=== PATIENT | male | born 1980 | race Caucasian/White ===

== ENCOUNTER 2017-11-21 13:00 | Emergency (ER) | payer OTHER ==
[~2017-11-21] VITALS: Ht 193 cm; Wt 167.8 kg
[~2017-11-21 13:00] MED LIST: ALBU90OI INH; ALBUIS INH; Bactrim 400-801 EACH PO; CEPH500 PO; CETI5; CHLO25 PO; CITA20 PO; CYCL10 PO; DIVA250EC; DIVA500ER PO; FURO20 PO; Flagyl500 MG PO; IBUP800 PO; LEVO750 PO; LORA1 PO; Lasix20 MG PO; MIRT30 PO; Naprosyn500 MG PO; Norco 5-325 Ta1 EACH PO; OLAN5 PO; POTCHL10ER PO; POTCHL20ER PO; Pepcid20 MG PO; Pepcid40 MG PO; Percocet 5-3251 EACH PO; SUCR1 PO; Ventolin/Prove6.7 GM; Zofran Odt8 MG SL
[2017-11-21] MEDS ORDERED: CLON1 PO (13:09)
[2017-11-21 13:43] LABS: BASOPHILS ABSOLUTE AUTO 0.07 K/mm3 (0.00-0.23); BASOPHILS PERCENT AUTO 1 % (0-2); EOSINOPHILS PERCENT AUTO 2 % (0-6); Hematocrit 51.7 % (37.0-53.0); Hemoglobin 17.6 g/dL (13.5-17.5); IMMATURE GRAN ABSOLUTE AUTO 0.02 K/mm3 (0.00-0.10); IMMATURE GRAN PERCENT AUTO 0 % (0-1); LYMPHOCYTES ABSOLUTE AUTO 1.76 K/mm3 (0.84-5.20); LYMPHOCYTES PERCENT AUTO 26 % (21-46); MONOCYTES ABSOLUTE AUTO 0.65 K/mm3 (0.16-1.47); MONOCYTES PERCENT AUTO 10 % (4-13); Mean Corpuscular HGB 30.8 pg (26.0-34.0); Mean Corpuscular Volume 91 fL (80-100); NEUTROPHILS ABSOLUTE AUTO 4.16 K/mm3 (1.96-9.15); NEUTROPHILS PERCENT AUTO 62 % (41-73); RDW Coefficient Variation 15.3 % (11.7-14.2); RDW Standard Deviation 50.5 fL (35.1-46.3); Red Blood Cell Count 5.71 M/mm3 (4.30-5.90); White Blood Cell Count 6.76 K/mm3 (4.00-11.30)
[2017-11-21 13:52] LABS: Alanine Aminotransfer (ALT/SGP 116 U/L (12-78); Albumin, Blood 3.5 g/dL (3.4-5.0); Alk Phos 98 U/L (50-136); Anion Gap 10 mmol/L (6-16); Aspartate Aminotrans (AST/SGOT 84 U/L (12-37); Bilirubin, Total 0.8 mg/dL (0.1-1.0); Blood Urea Nitrogen 6 mg/dL (8-24); Bun/Creatinine Ratio 7.8 (12.0-20.0); CO2, Blood 28 mmol/L (21-32); Calcium, Blood 8.5 mg/dL (8.5-10.1); Chloride, Blood 97 mmol/L (98-108); Creatinine, Blood 0.77 mg/dL (0.60-1.20); Globulin, Blood 3.5 g/dL (2.2-4.0); Glomerular Filtration Rate >60 (60-); Glucose, Blood 141 mg/dL (70-99); Potassium, Blood 3.7 mmol/L (3.5-5.5); Sodium, Blood 135 mmol/L (136-145)
[2017-11-21 14:00] LABS: Mean Platelet Volume 10.5 fL (9.1-12.4); Platelet Count 124 K/mm3 (150-400)
[2017-11-21] MEDS ORDERED: Zofran Odt4 MG PO (16:33)
[2017-11-21] MEDS ORDERED: Pepcid40 MG PO (16:33)
[2017-11-21] MEDS ORDERED: CHLO25 PO (16:33)
[2017-11-21] MEDS ORDERED: Percocet 5-3251 EACH PO (16:33)
[2018-09-05] MEDS ORDERED: Acetaminophen-1 EAC1 PO (12:35)
[2018-09-13] MEDS ORDERED: PROM25 PO (13:04)
[2018-09-13] MEDS ORDERED: Esgic Tablet1 EACH PO (13:04)
== END 2017-11-21 16:45 | disposition home or self-care (01) ==
LOC: ER 13:00
PROVIDERS: Emergency Medicine
DX: K85.90 Acute pancreatitis without necrosis or infection, unspecified (principal); F10.239 Alcohol dependence with withdrawal, unspecified; I25.2 Old myocardial infarction; Z79.899 Other long term (current) drug therapy
CPT/HCPCS: 36415; 74177; 80053; 83690; 85025; 93005; 93010; 96361; 96374; 96375; 96376; 99284; J2060; J2270; J3490; J7030; Q9967

== ENCOUNTER 2017-12-05 09:13 | Emergency (ER) | payer OTHER ==
[~2017-12-05] VITALS: Ht 193 cm; Wt 163.3 kg
[~2017-12-05 09:13] MED LIST changes: +CLON1 PO; +Zofran Odt4 MG PO
[2017-12-05 10:29] LABS: BASOPHILS ABSOLUTE AUTO 0.07 K/mm3 (0.00-0.23); BASOPHILS PERCENT AUTO 1 % (0-2); EOSINOPHILS ABSOLUTE AUTO 0.26 K/mm3 (0.00-0.68); EOSINOPHILS PERCENT AUTO 4 % (0-6); Hematocrit 52.8 % (37.0-53.0); Hemoglobin 18.5 g/dL (13.5-17.5); IMMATURE GRAN ABSOLUTE AUTO 0.01 K/mm3 (0.00-0.10); IMMATURE GRAN PERCENT AUTO 0 % (0-1); LYMPHOCYTES ABSOLUTE AUTO 1.64 K/mm3 (0.84-5.20); LYMPHOCYTES PERCENT AUTO 27 % (21-46); MONOCYTES ABSOLUTE AUTO 0.54 K/mm3 (0.16-1.47); MONOCYTES PERCENT AUTO 9 % (4-13); Mean Corpuscular HGB 32.2 pg (26.0-34.0); Mean Corpuscular Volume 92 fL (80-100); Mean Platelet Volume 10.4 fL (9.1-12.4); NEUTROPHILS PERCENT AUTO 59 % (41-73); Platelet Count 94 K/mm3 (150-400); RDW Coefficient Variation 15.8 % (11.7-14.2); RDW Standard Deviation 52.7 fL (35.1-46.3); Red Blood Cell Count 5.75 M/mm3 (4.30-5.90); White Blood Cell Count 6.12 K/mm3 (4.00-11.30)
[2017-12-05 10:46] LABS: Alanine Aminotransfer (ALT/SGP 100 U/L (12-78); Albumin, Blood 3.7 g/dL (3.4-5.0); Albumin/Globulin Ratio 0.9 (0.8-1.8); Alk Phos 107 U/L (50-136); Anion Gap 11 mmol/L (6-16); Aspartate Aminotrans (AST/SGOT 132 U/L (12-37); Bilirubin, Total 0.8 mg/dL (0.1-1.0); Blood Urea Nitrogen 6 mg/dL (8-24); Bun/Creatinine Ratio 6.9 (12.0-20.0); CO2, Blood 30 mmol/L (21-32); Calcium, Blood 9.9 mg/dL (8.5-10.1); Chloride, Blood 94 mmol/L (98-108); Creatinine, Blood 0.87 mg/dL (0.60-1.20); Ethanol (Alcohol), Blood, Med 242 mg/dL; Glomerular Filtration Rate >60 (60-); Glucose, Blood 174 mg/dL (70-99); Potassium, Blood 3.6 mmol/L (3.5-5.5); Sodium, Blood 135 mmol/L (136-145); Total Protein, Blood 7.7 g/dL (6.4-8.2)
[2017-12-05] MEDS ORDERED: CHLO25 PO (13:26)
[2017-12-05] MEDS ORDERED: Protonix40 MG PO (13:26)
[2018-09-05] MEDS ORDERED: Acetaminophen-1 EAC1 PO (12:35)
[2018-09-13] MEDS ORDERED: PROM25 PO (13:04)
[2018-09-13] MEDS ORDERED: Esgic Tablet1 EACH PO (13:04)
== END 2017-12-05 14:00 | disposition home or self-care (01) ==
LOC: ER 09:13
PROVIDERS: Emergency Medicine
DX: K29.20 Alcoholic gastritis without bleeding (principal); F10.229 Alcohol dependence with intoxication, unspecified; Y90.8 Blood alcohol level of 240 mg/100 ml or more
CPT/HCPCS: 36415; 80053; 83690; 85025; 86850; 86900; 86901; 96361; 96374; 96375; 96376; 99284; G0480; J2405; J3010; J7030

== ENCOUNTER → 2017-12-06 | Outpatient (CLI) | payer OTHER ==
[~2017-12-06] MED LIST changes: +Acetaminophen-1 EAC1 PO; +CIME400 PO; +Esgic Tablet1 EACH PO; +Hydroxyzine HCl50 MG; +LIDO700A20 TOP; +Loxapine5 MG PO; +MELATONIN10 M2 PO; +METF500C PO; +Naltrexone HCl50 MG PO; +Ondansetron Odt8 MG PO; +PROM25 PO; +Pantoprazole So40 MG PO; +Prednisone20 MG PO; +Prinivil10 MG PO; +Protonix40 MG PO; +RANI150 PO; +SERT100 PO; +TRAZ100 PO; +TRAZ50 PO; +Ventolin/Prove6.7 GM INH; +Zofran Odt4 MG SL
[2017-12-06 15:06] LABS: Bilirubin, Urine Neg (Neg); Blood, Urine 1+ (Neg); Glucose Qualitative, Urine Neg (Neg); Ketones, Urine Neg (Neg); Leukocyte Esterase, Urine 1+ (Neg); Nitrite, Urine Neg (Neg); Protein, Urine 2+ (Neg); Specific Gravity, Urine 1.025 (1.003-1.022); Urobilinogen, Urine 1+ (Normal)
[2017-12-06 15:57] LABS: Appearance, Urine Hazy (Clear); Color, Urine Orange (P-Yellow)
[2017-12-06 15:59] LABS: Calcium Oxalate Crystals Few /hpf; Mucus Mod (0-Heavy)
[2017-12-06 16:00] LABS: Bacteria Few /hpf; Squamous Epithelial Cells Not Seen /hpf (Few)
== END ==
LOC: LAB SHORT 14:40
PROVIDERS: Nurse Practitioner Family
DX: R31.9 Hematuria, unspecified (principal)
CPT/HCPCS: 81001; 87086

== ENCOUNTER → 2017-12-24 | Outpatient (CLI) | payer OTHER | LOC: LAB 14:30 | DX: R10.9 Unspecified abdominal pain (principal); R11.0 Nausea | CPT/HCPCS: 87338 ==

== ENCOUNTER 2018-01-09 11:01 | Emergency (ER) | payer OTHER ==
[~2018-01-09] VITALS: Ht 190.5 cm; Wt 158.8 kg
[~2018-01-09 11:01] MED LIST changes: -Acetaminophen-1 EAC1 PO; -CIME400 PO; -Esgic Tablet1 EACH PO; -Hydroxyzine HCl50 MG; -LIDO700A20 TOP; -Loxapine5 MG PO; -MELATONIN10 M2 PO; -METF500C PO; -Naltrexone HCl50 MG PO; -Ondansetron Odt8 MG PO; -PROM25 PO; -Pantoprazole So40 MG PO; -Prednisone20 MG PO; -Prinivil10 MG PO; -RANI150 PO; -SERT100 PO; -TRAZ100 PO; -TRAZ50 PO; -Ventolin/Prove6.7 GM INH; -Zofran Odt4 MG SL
[2018-01-09] MEDS ORDERED: Ventolin/Prove6.7 GM INH (11:29)
[2018-01-09] MEDS ORDERED: Loxapine5 MG PO (11:31)
[2018-01-09] MEDS ORDERED: TRAZ100 PO ×2 (11:32)
[2018-01-09] MEDS ORDERED: Naltrexone HCl50 MG PO (11:33)
[2018-01-09] MEDS ORDERED: RANI150 PO (11:34)
[2018-01-09] MEDS ORDERED: Pantoprazole So40 MG PO (11:34)
[2018-01-09] MEDS ORDERED: Ondansetron Odt8 MG PO (11:35)
[2018-01-09] MEDS ORDERED: Prinivil10 MG PO (11:36)
[2018-01-09] MEDS ORDERED: MELATONIN10 M2 PO (11:37)
[2018-01-09 12:50] LABS: BASOPHILS ABSOLUTE AUTO 0.05 K/mm3 (0.00-0.23); BASOPHILS PERCENT AUTO 1 % (0-2); EOSINOPHILS ABSOLUTE AUTO 0.24 K/mm3 (0.00-0.68); EOSINOPHILS PERCENT AUTO 5 % (0-6); Hematocrit 51.6 % (37.0-53.0); Hemoglobin 17.7 g/dL (13.5-17.5); IMMATURE GRAN ABSOLUTE AUTO 0.01 K/mm3 (0.00-0.10); IMMATURE GRAN PERCENT AUTO 0 % (0-1); LYMPHOCYTES ABSOLUTE AUTO 1.07 K/mm3 (0.84-5.20); LYMPHOCYTES PERCENT AUTO 22 % (21-46); MONOCYTES PERCENT AUTO 10 % (4-13); Mean Corpuscular HGB 32.8 pg (26.0-34.0); Mean Corpuscular HGB Conc 34.3 g/dL (31.5-36.5); Mean Corpuscular Volume 96 fL (80-100); NEUTROPHILS ABSOLUTE AUTO 3.09 K/mm3 (1.96-9.15); NEUTROPHILS PERCENT AUTO 62 % (41-73); Platelet Count 91 K/mm3 (150-400); RDW Coefficient Variation 14.6 % (11.7-14.2); White Blood Cell Count 4.96 K/mm3 (4.00-11.30)
[2018-01-09] MEDS ORDERED: Prednisone20 MG PO (13:02)
[2018-01-09 13:10] LABS: Troponin I <0.015 ng/mL (0.000-0.040)
[2018-01-09 13:18] LABS: Alanine Aminotransfer (ALT/SGP 344 U/L (12-78); Albumin, Blood 3.7 g/dL (3.4-5.0); Albumin/Globulin Ratio 0.9 (0.8-1.8); Alk Phos 77 U/L (50-136); Anion Gap 6 mmol/L (6-16); Aspartate Aminotrans (AST/SGOT 244 U/L (12-37); Blood Urea Nitrogen 12 mg/dL (8-24); Bun/Creatinine Ratio 15.9 (12.0-20.0); CO2, Blood 25 mmol/L (21-32); Calcium, Blood 8.7 mg/dL (8.5-10.1); Chloride, Blood 104 mmol/L (98-108); Creatinine, Blood 0.76 mg/dL (0.60-1.20); Globulin, Blood 3.9 g/dL (2.2-4.0); Glomerular Filtration Rate >60 (60-); Glucose, Blood 140 mg/dL (70-99); Potassium, Blood 4.2 mmol/L (3.5-5.5); Sodium, Blood 135 mmol/L (136-145); Total Protein, Blood 7.6 g/dL (6.4-8.2)
[2018-09-05] MEDS ORDERED: Acetaminophen-1 EAC1 PO (12:35)
[2018-09-13] MEDS ORDERED: PROM25 PO (13:04)
[2018-09-13] MEDS ORDERED: Esgic Tablet1 EACH PO (13:04)
== END 2018-01-09 13:24 | disposition home or self-care (01) ==
LOC: ER 11:01
PROVIDERS: Internal Medicine
DX: J20.9 Acute bronchitis, unspecified (principal); J45.909 Unspecified asthma, uncomplicated; I25.2 Old myocardial infarction; F17.200 Nicotine dependence, unspecified, uncomplicated
CPT/HCPCS: 71046; 80053; 84484; 85025; 93005; 93010; 94644; 96374; 99283; J2930

== ENCOUNTER 2018-03-16 07:34 | Emergency (ER) | payer OTHER ==
[~2018-03-16] VITALS: Ht 193 cm; Wt 158.8 kg
[~2018-03-16 07:34] MED LIST changes: +Loxapine5 MG PO; +MELATONIN10 M2 PO; +Naltrexone HCl50 MG PO; +Ondansetron Odt8 MG PO; +Pantoprazole So40 MG PO; +Prednisone20 MG PO; +Prinivil10 MG PO; +RANI150 PO; +TRAZ100 PO; +Ventolin/Prove6.7 GM INH
[2018-03-16 08:36] LABS: BASOPHILS ABSOLUTE AUTO 0.06 K/mm3 (0.00-0.23); BASOPHILS PERCENT AUTO 1 % (0-2); EOSINOPHILS ABSOLUTE AUTO 0.17 K/mm3 (0.00-0.68); EOSINOPHILS PERCENT AUTO 3 % (0-6); Hemoglobin 16.9 g/dL (13.5-17.5); IMMATURE GRAN ABSOLUTE AUTO 0.01 K/mm3 (0.00-0.10); IMMATURE GRAN PERCENT AUTO 0 % (0-1); LYMPHOCYTES ABSOLUTE AUTO 1.26 K/mm3 (0.84-5.20); LYMPHOCYTES PERCENT AUTO 25 % (21-46); MONOCYTES ABSOLUTE AUTO 0.45 K/mm3 (0.16-1.47); MONOCYTES PERCENT AUTO 9 % (4-13); Mean Corpuscular HGB 32.2 pg (26.0-34.0); Mean Corpuscular HGB Conc 34.5 g/dL (31.5-36.5); Mean Corpuscular Volume 93 fL (80-100); Mean Platelet Volume 12.1 fL (9.1-12.4); NEUTROPHILS ABSOLUTE AUTO 3.18 K/mm3 (1.96-9.15); NEUTROPHILS PERCENT AUTO 62 % (41-73); Platelet Count 112 K/mm3 (150-400); RDW Coefficient Variation 12.6 % (11.7-14.2); RDW Standard Deviation 43.3 fL (35.1-46.3); Red Blood Cell Count 5.25 M/mm3 (4.30-5.90); White Blood Cell Count 5.13 K/mm3 (4.00-11.30)
[2018-03-16 09:03] LABS: Alanine Aminotransfer (ALT/SGP 51 U/L (12-78); Albumin, Blood 3.4 g/dL (3.4-5.0); Alk Phos 114 U/L (50-136); Anion Gap 6 mmol/L (6-16); Aspartate Aminotrans (AST/SGOT 27 U/L (12-37); Bilirubin, Total 0.4 mg/dL (0.1-1.0); Blood Urea Nitrogen 6 mg/dL (8-24); Bun/Creatinine Ratio 10.1 (12.0-20.0); CO2, Blood 30 mmol/L (21-32); Calcium, Blood 8.4 mg/dL (8.5-10.1); Chloride, Blood 103 mmol/L (98-108); Globulin, Blood 3.5 g/dL (2.2-4.0); Glomerular Filtration Rate >60 (60-); Glucose, Blood 287 mg/dL (70-99); Potassium, Blood 3.7 mmol/L (3.5-5.5); Sodium, Blood 139 mmol/L (136-145); Total Protein, Blood 6.9 g/dL (6.4-8.2)
[2018-03-16] MEDS ORDERED: METF500C PO (09:40)
[2018-03-16] MEDS ORDERED: LIDO700A20 TOP (09:40)
[2018-03-16] MEDS ORDERED: Zofran Odt4 MG SL (09:40)
== END 2018-03-16 09:51 | disposition home or self-care (01) ==
LOC: ER 07:34
PROVIDERS: Physician Assistant
DX: K29.70 Gastritis, unspecified, without bleeding (principal); E11.9 Type 2 diabetes mellitus without complications; M79.81 Nontraumatic hematoma of soft tissue; F17.210 Nicotine dependence, cigarettes, uncomplicated; Z79.899 Other long term (current) drug therapy
CPT/HCPCS: 36415; 80053; 83690; 84484; 85025; 93005; 93010; 96361; 96374; 96375; 99283; C9113; J3010; J7030

== ENCOUNTER 2018-07-23 11:44 | Emergency (ER) | payer OTHER ==
[~2018-07-23] VITALS: Ht 190.5 cm; Wt 153.8 kg
[~2018-07-23 11:44] MED LIST changes: +LIDO700A20 TOP; +METF500C PO; +Zofran Odt4 MG SL
[2018-07-23] MEDS ORDERED: TRAZ50 PO (11:52)
[2018-07-23] MEDS ORDERED: Prinivil10 MG PO (11:52)
[2018-07-23] MEDS ORDERED: SERT100 PO (11:52)
[2018-07-23] MEDS ORDERED: Hydroxyzine HCl50 MG (11:52)
[2018-07-23 12:12] LABS: BASOPHILS ABSOLUTE AUTO 0.09 K/mm3 (0.00-0.23); BASOPHILS PERCENT AUTO 2 % (0-2); EOSINOPHILS ABSOLUTE AUTO 0.19 K/mm3 (0.00-0.68); EOSINOPHILS PERCENT AUTO 3 % (0-6); Hematocrit 48.3 % (37.0-53.0); Hemoglobin 16.4 g/dL (13.5-17.5); IMMATURE GRAN ABSOLUTE AUTO 0.01 K/mm3 (0.00-0.10); IMMATURE GRAN PERCENT AUTO 0 % (0-1); LYMPHOCYTES ABSOLUTE AUTO 2.07 K/mm3 (0.84-5.20); LYMPHOCYTES PERCENT AUTO 34 % (21-46); MONOCYTES ABSOLUTE AUTO 0.51 K/mm3 (0.16-1.47); MONOCYTES PERCENT AUTO 8 % (4-13); Mean Corpuscular HGB 29.8 pg (26.0-34.0); Mean Corpuscular Volume 88 fL (80-100); Mean Platelet Volume 11.7 fL (9.1-12.4); NEUTROPHILS ABSOLUTE AUTO 3.24 K/mm3 (1.96-9.15); NEUTROPHILS PERCENT AUTO 53 % (41-73); Platelet Count 146 K/mm3 (150-400); RDW Coefficient Variation 11.6 % (11.7-14.2); RDW Standard Deviation 37.2 fL (35.1-46.3); White Blood Cell Count 6.11 K/mm3 (4.00-11.30)
[2018-07-23 12:39] LABS: Alanine Aminotransfer (ALT/SGP 55 U/L (12-78); Albumin, Blood 3.7 g/dL (3.4-5.0); Alk Phos 105 U/L (50-136); Anion Gap 7 mmol/L (6-16); Aspartate Aminotrans (AST/SGOT 30 U/L (12-37); Bilirubin, Total 0.7 mg/dL (0.1-1.0); Blood Urea Nitrogen 13 mg/dL (8-24); Bun/Creatinine Ratio 17.5 (12.0-20.0); CO2, Blood 26 mmol/L (21-32); Calcium, Blood 8.8 mg/dL (8.5-10.1); Chloride, Blood 102 mmol/L (98-108); Creatinine, Blood 0.74 mg/dL (0.60-1.20); Globulin, Blood 3.6 g/dL (2.2-4.0); Glomerular Filtration Rate >60 (60-); Glucose, Blood 145 mg/dL (70-99); Potassium, Blood 4.2 mmol/L (3.5-5.5); Sodium, Blood 135 mmol/L (136-145); Total Protein, Blood 7.3 g/dL (6.4-8.2)
[2018-07-23] MEDS ORDERED: CIME400 PO (14:38)
== END 2018-07-23 14:52 | disposition home or self-care (01) ==
LOC: ER 11:44
PROVIDERS: Emergency Medicine
DX: R11.2 Nausea with vomiting, unspecified (principal); R19.7 Diarrhea, unspecified; R10.13 Epigastric pain; I25.2 Old myocardial infarction; F17.200 Nicotine dependence, unspecified, uncomplicated; Z79.899 Other long term (current) drug therapy; Z79.51 Long term (current) use of inhaled steroids; Z79.84 Long term (current) use of oral hypoglycemic drugs
CPT/HCPCS: 36415; 80053; 83690; 85025; 96361; 96374; 96375; 99283-25; C9113; J2405; J7030

== ENCOUNTER 2018-11-07 19:20 | Inpatient (IN) | payer OTHER ==
[~2018-11-07] VITALS: Ht 193 cm; Wt 151.8 kg
[~2018-11-07 19:20] MED LIST changes: +Acetaminophen-1 EAC1 PO; +CIME400 PO; +Esgic Tablet1 EACH PO; +Hydroxyzine HCl50 MG; +PROM25 PO; +SERT100 PO; +TRAZ50 PO
[2018-11-07 20:17] LABS: BASOPHILS ABSOLUTE AUTO 0.04 K/mm3 (0.00-0.23); BASOPHILS PERCENT AUTO 0 % (0-2); EOSINOPHILS PERCENT AUTO 0 % (0-6); Hematocrit 54.6 % (37.0-53.0); IMMATURE GRAN ABSOLUTE AUTO 0.03 K/mm3 (0.00-0.10); IMMATURE GRAN PERCENT AUTO 0 % (0-1); LYMPHOCYTES ABSOLUTE AUTO 1.33 K/mm3 (0.84-5.20); LYMPHOCYTES PERCENT AUTO 12 % (21-46); MONOCYTES PERCENT AUTO 8 % (4-13); Mean Corpuscular HGB 28.3 pg (26.0-34.0); Mean Corpuscular HGB Conc 34.8 g/dL (31.5-36.5); Mean Corpuscular Volume 81 fL (80-100); Mean Platelet Volume 10.9 fL (9.1-12.4); NEUTROPHILS ABSOLUTE AUTO 8.58 K/mm3 (1.96-9.15); NEUTROPHILS PERCENT AUTO 79 % (41-73); Platelet Count 101 K/mm3 (150-400); RDW Coefficient Variation 13.5 % (11.7-14.2); RDW Standard Deviation 38.5 fL (35.1-46.3); Red Blood Cell Count 6.72 M/mm3 (4.30-5.90); White Blood Cell Count 10.88 K/mm3 (4.00-11.30)
[2018-11-07 20:33] LABS: Alanine Aminotransfer (ALT/SGP 41 U/L (12-78); Albumin, Blood 3.6 g/dL (3.4-5.0); Albumin/Globulin Ratio 0.9 (0.8-1.8); Alk Phos 102 U/L (50-136); Anion Gap 19 mmol/L (6-16); Aspartate Aminotrans (AST/SGOT 47 U/L (12-37); Bilirubin, Total 2.2 mg/dL (0.1-1.0); Blood Urea Nitrogen 13 mg/dL (8-24); Bun/Creatinine Ratio 15.7 (12.0-20.0); CO2, Blood 22 mmol/L (21-32); Calcium, Blood 8.2 mg/dL (8.5-10.1); Chloride, Blood 86 mmol/L (98-108); Creatinine, Blood 0.83 mg/dL (0.60-1.20); Ethanol (Alcohol), Blood, Med 24 mg/dL; Globulin, Blood 4.1 g/dL (2.2-4.0); Glomerular Filtration Rate >60 (60-); Glucose, Blood 270 mg/dL (70-99); Potassium, Blood 3.3 mmol/L (3.5-5.5); Sodium, Blood 127 mmol/L (136-145); Total Protein, Blood 7.7 g/dL (6.4-8.2)
[2018-11-08 00:20] LABS: Source, Urine Clean Catch
[2018-11-08 00:27] LABS: Appearance, Urine Clear (Clear); Bilirubin, Urine Neg (Neg); Blood, Urine 2+ (Neg); Color, Urine Yellow (P-Yellow); Glucose Qualitative, Urine 3+ (Neg); Ketones, Urine 4+ (Neg); Leukocyte Esterase, Urine 1+ (Neg); Nitrite, Urine Neg (Neg); Protein, Urine 2+ (Neg); Urobilinogen, Urine 1+ (Normal); pH, Urine 6.5 (5.0-8.0)
[2018-11-08 00:37] LABS: U Amphetamine Screen Not Detected; U Barbituate Screen Not Detected; U Benzodiazapine Screen Not Detected; U Buprenorphine Screen Not Detected; U Cannabinoids Screen DETECTED; U Cocaine Screen Not Detected; U Methadone Screen Not Detected; U Methamphetamine Screen Not Detected; U Opiates Screen Not Detected; U Oxycodone Screen Not Detected; U Phencyclidine Screen Not Detected; U Propoxyphene Screen Not Detected
[2018-11-08 00:41] LABS: Bacteria Not Seen /hpf; Red Blood Cells, Urine Rare /hpf (0-2); Squamous Epithelial Cells Not Seen /hpf (Few); White Blood Cells, Urine Rare /hpf (0-5)
--- NOTE | 2018-11-08 00:53 | NUR ---
Admission/[place] of Care: Patient arrived to unit via stretcher, accompanied by ED nurse at 2240hr. Stood and transferred to bed, slightly unsteady on feet. Calm and cooperative with staff. C/o upper gastric/lower chest pain (intermittent) 04/29. Also c/o GI discomfort and nausea (intermittent). VSS, O2-90-94% on RA, denies dyspnea/SOB. CIWA of 9 upon arrival, 1mg prn Ativan given. CIWA then increased to 19 by approx 0030hr, 1mg ativan and 25mg librium given, good effect noted. Spoke with Hermelindo Oakley r/t patient's complaints and troponin value (0.041) Received orders to give prn SL Nitro, then give prn Maalox if Nitro not effective. Also received orders for repeat troponin, Echo for morning, EKG for morning, BNP, ASA, Lopressor 12.5 daily (first now), and NS at 75ml/hr when banana bag is finished. New med orders completed at this time. Patient states x1 dose of SL Nitro effective to decrease upper gastric pain/discomfort. Patient instructed to inform staff of any return or increase in upper gastric /chest pain. Peripheral IV's x2 patent and intact. Using urinal in bed without difficulty. Will continue to monitor for pain, comfort, safety.
[2018-11-08 05:19] LABS: Hematocrit 49.3 % (37.0-53.0); Hemoglobin 16.9 g/dL (13.5-17.5)
[2018-11-08 05:44] LABS: Alanine Aminotransfer (ALT/SGP 31 U/L (12-78); Albumin/Globulin Ratio 0.9 (0.8-1.8); Alk Phos 80 U/L (50-136); Anion Gap 7 mmol/L (6-16); Aspartate Aminotrans (AST/SGOT 40 U/L (12-37); Bilirubin, Total 1.9 mg/dL (0.1-1.0); Blood Urea Nitrogen 10 mg/dL (8-24); Bun/Creatinine Ratio 13.1 (12.0-20.0); CO2, Blood 30 mmol/L (21-32); Calcium, Blood 7.5 mg/dL (8.5-10.1); Chloride, Blood 94 mmol/L (98-108); Creatinine, Blood 0.77 mg/dL (0.60-1.20); Globulin, Blood 3.4 g/dL (2.2-4.0); Glomerular Filtration Rate >60 (60-); Glucose, Blood 192 mg/dL (70-99); Potassium, Blood 3.6 mmol/L (3.5-5.5); Sodium, Blood 131 mmol/L (136-145); Total Protein, Blood 6.4 g/dL (6.4-8.2)
--- NOTE | 2018-11-08 06:15 | NUR ---
Shift Summary: Patient slept on/off throughout shift. Remains calm and cooperative with staff, using call light for assistance. No further c/o upper gastric/chest pain/discomfort following x1 dose SL nitro. CIWA 9-20 throughout shift, 1-2mg doses of Ativan and 25-50mg doses of Librium effective to manage withdrawal symptoms. Also gave prn zofran and phenergan with good effect for c/o nausea. Voiding using urinal in bed without difficulty. Peripheral IV's remain patent and intact. Will continue to monitor until report to day shift RN.
--- NOTE | 2018-11-08 07:30 | NUR ---
ASSUMED CARE OF PATIENT; SEE ASSESSMENT CHARTING FOR DETAILS. PATIENT ALERT AND ORIENTED AT THIS TIME; STATES HE IS FEELING BETTER. DENIES FURTHER CHEST PAIN OR HEADACHE PAIN. HANDS TREMULOUS WHEN HELD OUT; SOMEWHAT ANXIOUS AND WANTING SEDATIVE MEDS; STATES HE IS STARTING TO FEEL WORSE AND HAS MILD NAUSEA. TOLERATING ADA DIET WITHOUT EMESIS OR HEARTBURN ETC. CIWA LEVEL 10. PATIENT VOIDING IN URINAL; INFREQUENT BUT LARGE QUANTITY AT A TIME; URINE ORANGISH/RADHA IN COLOR. AFEBRILE AND VSS; BP MODERATELY ELEVATED AT TIMES; APPEARS ASSOCIATED WITH ANXIETY INCREASING.
[2018-11-08 08:49] LABS: CHOL/HDL RATIO 2.5; Cholesterol 60 mg/dL (50-200); HDL Cholesterol 24 mg/dL (>39); LDL/HDL RATIO Unable to Calculate; Low Density Lipoprotein Chol Unable to Calculate mg/dL (0-110); Triglycerides 204 mg/dL (30-140); Very Low Density Lipoprot Chol 40 mg/dL (6-28)
--- NOTE | 2018-11-08 11:10 | NUR ---
ECHOCARDIOGRAM COMPLETE
--- NOTE | 2018-11-08 12:40 | NUR ---
CBG WAS 251; 4U NOVOLOG INSULIN, SQ, GIVEN FOR COVERAGE.
--- NOTE | 2018-11-08 16:45 | NUR ---
CBG 217; COVERED WITH 2UNITS [employer].
--- NOTE | 2018-11-08 18:32 | NUR ---
SUMMARY: CIWA LEVELS 10-14 T/O THE DAY. HEAT TURNED DOWN IN ROOM D/T FACE FLUSHED AND TEMP. UP TO 98.7. PATIENT NAUTIOUS WITH SOME WRETCHING (DRY HEAVES) BEFORE DINNER; NO ACUTUAL EMESIS, HOWEVER. TOLERATING ABOUT 50% OF MEALS AND DRINKING FLUIDS MODERATELY WELL. NS INFUSING AT 75ML/HR. NO VISITORS T/O DAY; SOMEONE HAD CALLED TO CHECK ON PATIENT WHEN HE WAS SLEEPING AND NEVER CALLED BACK. PROBABLE TRANSFER TO FLOOR, TOMORROW, IF ETOH WITHDRAWAL SX'S DO NOT WORSEN AND ARE MANAGED WITH IVT MEDS.
--- NOTE | 2018-11-08 19:15 | NUR ---
[facility] of Care: Patient sleeping, easily roused via verbal stimuli, but drowsy. Oriented x4, calm and cooperative, CIWA-3 VSS. Denies pain, discomfort, SOB, dyspnea, or nausea. Will continue to monitor CIWA and give prn Ativan, Librium, or antinausea medications as indicated. Peripheral IV's, x2 patent and intact, NS infusing at 75ml/hr. Call light in reach, makes needs known. Will continue to monitor for pain, comfort, safety.
[2018-11-09 04:29] LABS: Hematocrit 44.7 % (37.0-53.0); Hemoglobin 15.2 g/dL (13.5-17.5); Mean Corpuscular HGB 28.7 pg (26.0-34.0); Mean Platelet Volume 11.5 fL (9.1-12.4); Platelet Count 52 K/mm3 (150-400); RDW Coefficient Variation 13.5 % (11.7-14.2); RDW Standard Deviation 41.2 fL (35.1-46.3); Red Blood Cell Count 5.29 M/mm3 (4.30-5.90); White Blood Cell Count 4.37 K/mm3 (4.00-11.30)
[2018-11-09 04:30] LABS: Mean Corpuscular Volume 85 fL (80-100)
[2018-11-09 04:41] LABS: Alanine Aminotransfer (ALT/SGP 26 U/L (12-78); Albumin, Blood 2.7 g/dL (3.4-5.0); Albumin/Globulin Ratio 0.8 (0.8-1.8); Alk Phos 76 U/L (50-136); Anion Gap 6 mmol/L (6-16); Aspartate Aminotrans (AST/SGOT 34 U/L (12-37); Bilirubin, Total 1.3 mg/dL (0.1-1.0); Blood Urea Nitrogen 10 mg/dL (8-24); Bun/Creatinine Ratio 12.6 (12.0-20.0); CO2, Blood 32 mmol/L (21-32); Calcium, Blood 7.5 mg/dL (8.5-10.1); Chloride, Blood 95 mmol/L (98-108); Creatinine, Blood 0.79 mg/dL (0.60-1.20); Globulin, Blood 3.3 g/dL (2.2-4.0); Glomerular Filtration Rate >60 (60-); Glucose, Blood 202 mg/dL (70-99); Potassium, Blood 3.3 mmol/L (3.5-5.5); Sodium, Blood 133 mmol/L (136-145)
--- NOTE | 2018-11-09 06:03 | NUR ---
Shift Summary: Patient slept well throughout shift, easily roused via verbal stimuli. CIWA 3-18 throughout shift. Prn Ativan aprrox q2hr 2mg doses, along with prn Librium x2 doses effective to manage ETOH withdrawal symptoms. Prn Zofran given x2 per c/o nausea with good effect. Remains calm and cooperative with staff, makes needs known. Using urinal in bed without difficulty. Peripheral IV's x2 remain patent and intact. Morning labs showed K+ of 3.3, received order per Dr. Flynn for KCl 40meq IV x1. Will continue to monitor until report to day shift RN.
--- NOTE | 2018-11-09 07:30 | NUR ---
ASSUMED CARE OF PATIENT; SEE ASSESSMENT CHARTING FOR DETAILS. PATIENT REQUESTING ATIVAN AND LIBRIUM D/T INCREASING "SHAKES AND HEADACHE WORSENING; I'M STARTING TO FEEL NAUTIOUS, AGAIN". ATIVAN 2MG IV AND LIBRIUM 50MG PO FOR ETOH WITHDRAWALS; CIWA 13. VOIDING MODERATE AMOUNTS OF RADHA-ORANGISH URINE; COLOR CLEARING, HOWEVER. OXYGEN AT 2L/MIN D/T BIOX DROPS WITH SLEEPING/SNORING. SLEEPING WHEN NOT DISTURBED; APPETITE ADEQUATE.
--- NOTE | 2018-11-09 11:40 | NUR ---
CIWA UP TO 21; LIBRIUM 50MG PO AND ATIVAN 2MG IV. PATIENT REMAINS COOPERATIVE BUT MORE FIDGETY AND ANXIOUS.
--- NOTE | 2018-11-09 12:00 | NUR ---
DR. LOPEZ HERE; PLANS TO KEEP PATIENT IN ICU AT LEAST OVERNIGHT D/T CIWA LEVELS REMAINING HIGH AND PATIENT REQUIRING LARGE AMOUNTS OF ATIVAN/LIBRIUM. IVF DC'D AND CAN BE TKO OR OFF; PATIENT DRINKING LARGE AMOUNTS OF WATER.
--- NOTE | 2018-11-09 12:30 | NUR ---
UP TO TOILET FOR BM; STANDBY ASSIST. TO/FROM TOILET; BALANCE/STRENGTH GOOD. HAD LARGE FORMED TANNISH/BROWN STOOL. CONT. WITH UNDERLYING NAUSEA; ATE ABOUT 50% OF LUNCH WITHOUT EMESIS. TOLERATIVE WATER/FLUIDS WELL.
--- NOTE | 2018-11-09 17:00 | NUR ---
CIWA 18; PATIENT REMAINS COOPERATIVE BUT HAS INCREASED ANXIETY; MEDICATED WITH LIBRIUM/ATIVAN FREQUENTLY THIS AFTERNOON.
--- NOTE | 2018-11-09 18:01 | NUR ---
SUMMARY: REQUIRING FREQUENT DOSING OF ATIVAN AND/OR LIBRIUM TODAY. CIWA 13-21 THE PAST 12 HOURS. APPETITE BETTER THIS EVENING; CONT. WITH MILD NAUSEA BUT NO WRETCHING OR EMESIS. VOIDING LARGE AMOUNTS OF URINE IN URINAL; URINE MORE RADHA/YELLOW; PATIENT DRINKING LARGE AMOUNTS OF ICE WATER.
--- NOTE | 2018-11-09 19:17 | NUR ---
[facility] of Care: Patient alert and oriented x4, sitting upright in bed watching tv. Continues to be calm and cooperative with staff. CIWA of 17 at this time, prn Ativan and Librium given. Using urinal in bed without difficulty. Peripheral IV's x2 patent and intact. Tolerating PO fluids without difficulty. Call light in reach, makes needs known. Will continue to monitor CIWA and given prn medications as indicated.
[2018-11-10 03:29] LABS: Hematocrit 43.8 % (37.0-53.0); Hemoglobin 14.3 g/dL (13.5-17.5); Mean Corpuscular HGB Conc 32.6 g/dL (31.5-36.5); Mean Corpuscular Volume 86 fL (80-100); Mean Platelet Volume 11.4 fL (9.1-12.4); Platelet Count 51 K/mm3 (150-400); RDW Coefficient Variation 13.3 % (11.7-14.2); RDW Standard Deviation 41.1 fL (35.1-46.3); Red Blood Cell Count 5.11 M/mm3 (4.30-5.90); White Blood Cell Count 3.93 K/mm3 (4.00-11.30)
[2018-11-10 03:45] LABS: Albumin, Blood 2.7 g/dL (3.4-5.0); Anion Gap 6 mmol/L (6-16); Blood Urea Nitrogen 9 mg/dL (8-24); Bun/Creatinine Ratio 10.5 (12.0-20.0); CO2, Blood 34 mmol/L (21-32); Calcium, Blood 7.9 mg/dL (8.5-10.1); Chloride, Blood 96 mmol/L (98-108); Creatinine, Blood 0.86 mg/dL (0.60-1.20); Glomerular Filtration Rate >60 (60-); Glucose, Blood 194 mg/dL (70-99); Phosphorus, Blood 2.4 mg/dL (2.5-4.9); Potassium, Blood 3.9 mmol/L (3.5-5.5); Sodium, Blood 136 mmol/L (136-145); Troponin I 0.017 ng/mL (0.000-0.040)
--- NOTE | 2018-11-10 06:06 | NUR ---
Shift Summary: Patient awake for most of shift, with overall increase in anxiety and restlessness, remains A/O x4. Required more Aitvan and Librium compared to the last x2 previous NOC shift. Remains calm and cooperative with staff, but CIWA more consistently elevated to 18-19. Prn Ativan 2-4mg doses given q1-2hr throughout shift. Ambulated in room and throughout unit via stand-by assist without difficulty. OOB without use of call light x1, put on his jacket in room and stated to staff that he was going outside to smoke. Patient then educated on safety issues r/t going outside, cooperative with getting back in bed. Using urinal in bed, or dangling at side of bed without difficulty. Urine appearance now wnl. Drinking/eating well. Peripheral IV's remain patent and intact. Fell asleep approx 0500hr, and continues to sleep at this time. Will continue to monitor for pain, comfort, safety.
--- NOTE | 2018-11-10 08:00 | NUR ---
STILL SLEEPING. DIDN'T GET TO SLEEP UNTIL 0430 THIS AM. BREAKFAST HELD AND PAT ALLOWED TO SLEEP.
--- NOTE | 2018-11-10 09:30 | NUR ---
PATIENT AWAKENED BY DR LOPEZ. STILL TREMEROUS AND HAS A HEAD ACHE. LUNGS CLEAR. UP TO VOID CLEAR YELLOW URINE. [facility] HERE AND TALKED WITH PATIENT. PATIENT WALKED TO SHOWER AND CIRA WELL. BACK TO A CLEAN BED AND WATCING TV.
--- NOTE | 2018-11-10 13:36 | NUR ---
Jos was welcoming of visit. He tells me has has been sober in the past for 5 years. 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 He was involved with a 12-step program, but never worked the 12 steps. He beleives he can go to rehab and stay sober on his own after that. He has had many losses that have deeply effected him. I provided theraputic listening, gentle elementary school counselor, and prayer. Artis would certainly benefit from continued counseling for grief. I will remain available.
--- NOTE | 2018-11-10 16:48 | NUR ---
REQUIRING LARGE AMTS OF LIBRIUM AND ATIVAN TODAY. STILL HAVING TREMERS AND HEADACHES. IV STINGING, DCED SITE RED. VERY COOPERATIVE AND WATCHING TV.
--- NOTE | 2018-11-10 18:16 | NUR ---
NEW IV RESTARTED IN RT FOREARM AND LEFT HAND DCED. GIVEN DARRELL DOSES OF ATVAN AND LIBRIUM TODAY. SEE CIWA. STILL VERY TREMEROUS AT TIMES AND SWEATING. UP AND AROUND TODAY TO SHOWER AND IN ROOM. TAKING PO WELL.
--- NOTE | 2018-11-10 19:15 | NUR ---
ASSUMING CARE OF PT AT THIS TIME. PT REPORT RECEIVED AT BEDSIDE WITH OFFGOING NURSE, DAMIAN DURHAM. PT LAYING IN BED, WATCHING TELEVISION UPON ENTERING THE ROOM. VS STABLE - SEE VS FS. PT DOES NOT APPEAR TO BE IN DISTRESS AT THIS TIME. WILL REVIEW PLAN OF CARE.
--- NOTE | 2018-11-10 19:30 | NUR ---
ASSESSMENT PT CALM, QUIET, COOPERATIVE, OCC AGITATION, OCC ANXIETY, FLAT AFFECT, RESPONDS TO VERBAL STIMULI, SPONT OPENS EYES, A&O X4, OCC SLOW TO RESPOND. SENSATION INTACT. DENIES N/T. PT HOPE. SLIGHT WEAKNESS BLE'S. 1P SBA WITH AMBULATION TO ASSIST WITH LINES/CORDS. SLIGHT TREMORS NOTED. CIWA ELEVATED. LIBRIUM AND ATIVAN PRN FOR CIWA. PT DENIES PAIN/DISCOMFORT AT THIS TIME. NO S/X OF PAIN/DISCOMFORT NOTED AT THIS TIME. LUNG CLEAR. PT ON RA. OXY SAT >90%. RR 16. DENIES SOB. NO COUGHING. AFBEBRILE. NSR. HR 90'S. BP STABLE - SEE VS FS. STRONG PULSES. WARM, PINK SKIN. ACTIVE BT X4 QUADRANTS. ABD MOD DIST (PT STATES DIST IS NORMAL), SOFT, NONTENDER. ZOFRAN FOR NAUSEA. NO VOMITING. PT VOIDS IN URINAL WITHOUT ASSISTANCE. CLEAR, YELLOW URINE NOTED. PIV X1 - SL.
[2018-11-11 04:10] LABS: BASOPHILS ABSOLUTE AUTO 0.04 K/mm3 (0.00-0.23); BASOPHILS PERCENT AUTO 1 % (0-2); EOSINOPHILS ABSOLUTE AUTO 0.18 K/mm3 (0.00-0.68); EOSINOPHILS PERCENT AUTO 4 % (0-6); Hematocrit 44.8 % (37.0-53.0); Hemoglobin 14.5 g/dL (13.5-17.5); IMMATURE GRAN ABSOLUTE AUTO 0.01 K/mm3 (0.00-0.10); IMMATURE GRAN PERCENT AUTO 0 % (0-1); LYMPHOCYTES ABSOLUTE AUTO 1.55 K/mm3 (0.84-5.20); LYMPHOCYTES PERCENT AUTO 33 % (21-46); MONOCYTES ABSOLUTE AUTO 0.42 K/mm3 (0.16-1.47); MONOCYTES PERCENT AUTO 9 % (4-13); Mean Corpuscular HGB 28.4 pg (26.0-34.0); Mean Corpuscular HGB Conc 32.4 g/dL (31.5-36.5); Mean Corpuscular Volume 88 fL (80-100); Mean Platelet Volume 11.6 fL (9.1-12.4); NEUTROPHILS ABSOLUTE AUTO 2.48 K/mm3 (1.96-9.15); NEUTROPHILS PERCENT AUTO 53 % (41-73); Platelet Count 51 K/mm3 (150-400); RDW Coefficient Variation 13.2 % (11.7-14.2); RDW Standard Deviation 42.1 fL (35.1-46.3); Red Blood Cell Count 5.11 M/mm3 (4.30-5.90); White Blood Cell Count 4.68 K/mm3 (4.00-11.30)
[2018-11-11 04:43] LABS: Anion Gap 5 mmol/L (6-16); Blood Urea Nitrogen 14 mg/dL (8-24); Bun/Creatinine Ratio 17.4 (12.0-20.0); CO2, Blood 32 mmol/L (21-32); Calcium, Blood 8.1 mg/dL (8.5-10.1); Chloride, Blood 98 mmol/L (98-108); Glomerular Filtration Rate >60 (60-); Glucose, Blood 242 mg/dL (70-99); Phosphorus, Blood 3.6 mg/dL (2.5-4.9); Potassium, Blood 4.1 mmol/L (3.5-5.5); Sodium, Blood 135 mmol/L (136-145)
--- NOTE | 2018-11-11 05:04 | NUR ---
SHIFT ASSESSMENT NO ACUTE CHANGES NOTED T/O SHIFT. PT SLEPT ON/OFF T/O SHIFT. INCREASED AGITATION AND ANXIETY NOTED T/O SHIFT. PT OCC YELLING FOR STAFF. PT USED CALL LIGHT APPROPRIATELY AT BEGINNING OF THE SHIFT, BUT NOT USING CALL LIGHT THIS AM. PT FLAT AFFECT, RESPONDS TO VERBAL STIMULI, SPONT OPENS EYES, A&O X4, OCC SLOW TO RESPOND. PT STATES HE IS HAVING AUDITORY HALLUCINATIONS THIS AM. THEN PT STATED "DOES THAT MEAN I CAN HAVE HALDOL NOW?". CONT TO ASSESS CIWA AND MEDICATED WITH MEDICATIONS PER PHYSICIAN'S ORDER. SENSATION INTACT. DENIES N/T. PT HOPE. SLIGHT WEAKNESS BLE'S. 1P SBA WITH AMBULATION TO ASSIST WITH LINES/CORDS. 1P SBA TO STAND AT EDGE TO VOID. PT CONT TO GET OOB WITHOUT ASSISTANCE DESPITE CONSTANT EDUCATION. FALL RISK PRECAUTIONS MAINTAINED. SIDE RAILS AND BED ALARM UTILIZED. PT DENIED PAIN/DISCOMFORT T/O SHIFT, EXCEPT MILD MACIAS. OTHERWISE, NO S/SX OF PAIN/DISCOMFORT NOTED. LUNGS CLEAR. PT ON RA. OXY SAT >90%. RR 13 TO 20'S. DENIES SOB. NO COUGHING. AFEBRILE. NSR TO ST. HR 80'S TO 100'S. BP STABLE - SEE VS FS. INCREASED RR, BP, AND HR NOTED WITH AMBULATION. STRONG PULSES. WARM, PINK SKIN. ACTIVE BT X4 QUADRATNS. ABD MOD DIST (PT STATES DIST IS NORMAL), SOFT, NONTENDER. ZOFRAN ADMINISTERED FOR NAUSEA. PT STATES NAUSEA IS TOLERABLE AFTER ADMINISTERING ZOFRAN. NO VOMITING. PT VOIDS IN URINAL. ASSISTED WITH STANDING AT EDGE OF BED TO VOID. CLEAR, YELLOW URINE NOTD. PIV X1 - SL. WILL CONT TO MONITOR PT AND WILL PROVIDE BEDSIDE REPORT TO ONCOMING NURSE THIS AM.
--- NOTE | 2018-11-11 06:29 | NUR ---
PT CARE / PT'S MOTHER INCREASED AGITATION, ANXIETY, RESTLNESS NOTED THIS AM. PT NOT USING CALL LIGHT AND CONT TO GET OOB. CONT TO ASSESS CIWA AND MEDICATE WITH MEDICATIONS PER PHYSICIAN'S ORDFER. PT CONT TO C/O AUDITORY HALLUCINATIONS. PT GOT OOB. THIS RN WALKED IN ICU 2 AND SMELLED MARIJUANA. AFTER CONTINOUSLY ASKING PT ABOUT MARIJUANA SMELL, PT ADMITTED TO HAVING A VAPE MARIJUANA PEN AND "TAKING MULTIPLE PUFFS" FROM THE MARIJUANA PEN "TO SLEEP". THIS RN EDUCATED PT ABOUT NOT ADMINISTERING HOME MEDICATIONS WHILE AT [facility]. PT GAVE THIS RN THE MARIJUANA PEN AND INSTRUCTED THIS RN TO "DISPOSE" OF THE MARIJUANA PEN. EMANI FERNÁNDEZ RN AND HERMINIO URBANO (SUPERVISOR SPINNING) INFORMED OF THE MARIJUANA PEN. HERMINIO URBANO INSTRUCTED TO CONTACT SECURITY TO DISPOSE OF THE MARIJUANA PEN. SECURITY CAME TO ICU AND DISPOSED OF MARIJUANA PEN. PT'S MOTHER, ADRIANNA, CALLED ICU. UPDATED ADRIANNA OF PT'S STATUS. ADRIANNA STATED, "MY SON HAS BEEN THROUGH ALCOHOL WITHDRAWLS MULTIPLE TIMES. HE KNOWS HOW TO ACT AND WHAT TO SAY IN ORDER TO GET MORE MEDICATIONS FROM YOU GUYS. DON'T PLAY INTO HIS GAMES".
--- NOTE | 2018-11-11 07:30 | NUR ---
MALE PATIENT DRESSED AND AT RN DESK. STATES HE IS GOING TO LEAVE AND THE RNS ON NIGHTS ARE TOO CONTROLING. THIS RN TALKED WITH HIM AND HE AGREED TO STAY AND WORK WITH THE MEDS THAT ARE ORDERED. UP AMB, VERY STABLE. LIBRIUM 50MG AND ATIVAN 2MG IVP AND PATIENT RESTING QUIETLY. TOLD THE HE COULD NOT HAVE ANY MORE MEDS FOR 2 HOURS.
--- NOTE | 2018-11-11 10:00 | NUR ---
ERNIE UP AND VERY UPSET HAS ALIGHTER THAT WAS IN HIS BLONING BAG AND WANTS TO GO OUT AND SMOKE. AGAIN EXPLAINED TO HIM THAT HE COULD NOT LEAVE THE ICU. ERNIE STATED THAT HE WANTS TO LEAVE AMA. DR RAMOS CAME AND TALKED TO HIM ABOUT THE DANGERS OF LEAVING. ASKED THE DR FOR A PRESCRIPTION FOR LIBRIUM AND DR LOPEZ TOLD HIM HE NEEDED TO GO TO HIS PCP AT [facility]. ERNIE WAS DRESSED AND LEFT THE ICU 10 MINUTES LATER PATINT CAME BACK TO THE ICU AFTER HAVING A SMOKE AND WANTED TO BE READMITTED TO HIS ROOM. EXPLAINED TO HIM THAT THAT COULD NOT BE DONE.
--- NOTE | 2018-11-11 10:15 | NUR ---
WHEN PATIENT LEFT THE ICU HE RAPIDLY WENT OUT THE AND WE WERE UNABLE TO DC HIS IV IN HIS RIGHT FOREARM.
[2018-11-12] MEDS ORDERED: GLIP5ER PO (03:10)
[2018-11-12] MEDS ORDERED: Ventolin/Prove6.7 GM (03:11)
[2018-11-12] MEDS ORDERED: METO5A PO (03:17)
[2018-11-12] MEDS ORDERED: OLAN5 PO (03:17)
[2018-11-12] MEDS ORDERED: PANT20 (03:17)
[2018-11-12] MEDS ORDERED: METO50 (03:18)
[2018-11-12] MEDS ORDERED: Novolog100 UNIT/1 (03:19)
[2018-11-12] MEDS ORDERED: CLOP75 PO (03:19)
== END 2018-11-11 10:35 | disposition left against medical advice (07) | DRG 894 ==
LOC: ER 19:20 → ICUW 21:42 → ER 22:35 → ICUE 22:42
PROVIDERS: Emergency Medicine; Family Medicine; Nurse Practitioner Acute Care; ADMIT Internal Medicine
DX: F10.239 Alcohol dependence with withdrawal, unspecified (principal); E87.1 Hypo-osmolality and hyponatremia; I50.30 Unspecified diastolic (congestive) heart failure; Z68.41 Body mass index [BMI] 40.0-44.9, adult; E87.6 Hypokalemia; J44.9 Chronic obstructive pulmonary disease, unspecified; D69.6 Thrombocytopenia, unspecified; E11.9 Type 2 diabetes mellitus without complications; F41.9 Anxiety disorder, unspecified; Z79.4 Long term (current) use of insulin; Z87.891 Personal history of nicotine dependence
CPT/HCPCS: 36415; 71045; 80048; 80053; 80061; 80069; 81001; 82947; 83690; 83735; 83880; 84100; 84484; 85014; 85018; 85025; 85027; 93005; 93010; 93306; 96361; 96374; 96375; 96376; 99285-25; C9113; G0480; J1650; J2060; J2405; J2550; J2765; J3010; J3411; J3475; J3480; J7030; J7042; J7050

== ENCOUNTER 2018-11-12 02:46 | Emergency (ER) | payer OTHER ==
[~2018-11-12] VITALS: Ht 193 cm; Wt 149.7 kg
[2018-11-12] MEDS ORDERED: GLIP5ER PO (03:10)
[2018-11-12] MEDS ORDERED: Ventolin/Prove6.7 GM (03:11)
[2018-11-12] MEDS ORDERED: METO5A PO (03:17)
[2018-11-12] MEDS ORDERED: PANT20 (03:17)
[2018-11-12] MEDS ORDERED: OLAN5 PO (03:17)
[2018-11-12] MEDS ORDERED: METO50 (03:18)
[2018-11-12] MEDS ORDERED: Novolog100 UNIT/1 (03:19)
[2018-11-12] MEDS ORDERED: CLOP75 PO (03:19)
[2018-11-12 03:27] LABS: BASOPHILS ABSOLUTE AUTO 0.05 K/mm3 (0.00-0.23); BASOPHILS PERCENT AUTO 1 % (0-2); EOSINOPHILS PERCENT AUTO 3 % (0-6); Hematocrit 46.7 % (37.0-53.0); Hemoglobin 15.4 g/dL (13.5-17.5); IMMATURE GRAN ABSOLUTE AUTO 0.01 K/mm3 (0.00-0.10); IMMATURE GRAN PERCENT AUTO 0 % (0-1); LYMPHOCYTES PERCENT AUTO 29 % (21-46); MONOCYTES ABSOLUTE AUTO 0.73 K/mm3 (0.16-1.47); MONOCYTES PERCENT AUTO 12 % (4-13); Mean Corpuscular HGB 28.5 pg (26.0-34.0); Mean Corpuscular Volume 86 fL (80-100); Mean Platelet Volume 11.7 fL (9.1-12.4); NEUTROPHILS ABSOLUTE AUTO 3.19 K/mm3 (1.96-9.15); NEUTROPHILS PERCENT AUTO 54 % (41-73); Platelet Count 78 K/mm3 (150-400); RDW Coefficient Variation 13.4 % (11.7-14.2); RDW Standard Deviation 40.8 fL (35.1-46.3); Red Blood Cell Count 5.41 M/mm3 (4.30-5.90); White Blood Cell Count 5.88 K/mm3 (4.00-11.30)
[2018-11-12 03:38] LABS: Alanine Aminotransfer (ALT/SGP 34 U/L (12-78); Albumin, Blood 2.9 g/dL (3.4-5.0); Albumin/Globulin Ratio 0.8 (0.8-1.8); Alk Phos 93 U/L (50-136); Anion Gap 10 mmol/L (6-16); Aspartate Aminotrans (AST/SGOT 30 U/L (12-37); Bilirubin, Total 0.5 mg/dL (0.1-1.0); Blood Urea Nitrogen 12 mg/dL (8-24); Bun/Creatinine Ratio 17.8 (12.0-20.0); CO2, Blood 26 mmol/L (21-32); Chloride, Blood 100 mmol/L (98-108); Creatinine, Blood 0.68 mg/dL (0.60-1.20); Ethanol (Alcohol), Blood, Med <3 mg/dL; Globulin, Blood 3.6 g/dL (2.2-4.0); Glomerular Filtration Rate >60 (60-); Glucose, Blood 261 mg/dL (70-99); Potassium, Blood 3.7 mmol/L (3.5-5.5); Sodium, Blood 136 mmol/L (136-145); Total Protein, Blood 6.5 g/dL (6.4-8.2)
== END 2018-11-12 04:35 | disposition home or self-care (01) ==
LOC: ER 02:46
PROVIDERS: Emergency Medicine
DX: R10.13 Epigastric pain (principal); Z79.899 Other long term (current) drug therapy; Z79.4 Long term (current) use of insulin; I25.2 Old myocardial infarction; E11.9 Type 2 diabetes mellitus without complications; F17.200 Nicotine dependence, unspecified, uncomplicated
CPT/HCPCS: 80053; 83690; 85025; 93005; 93010; 96374; 99284-25; G0480; J2270; J7030

== ENCOUNTER 2018-12-05 12:09 | Emergency (ER) | payer OTHER ==
[~2018-12-05] VITALS: Ht 185.4 cm; Wt 131.5 kg
[~2018-12-05 12:09] MED LIST changes: +CLOP75 PO; +GLIP5ER PO; +METO50; +METO5A PO; +Novolog100 UNIT/1; +PANT20
[2018-12-06] MEDS ORDERED: Ativan1 MG PO (14:20)
== END 2018-12-05 14:44 | disposition left against medical advice (07) ==
LOC: ER 12:09
DX: Z53.21 Procedure and treatment not carried out due to patient leaving prior to being seen by health care provider (principal)

== ENCOUNTER 2018-12-06 13:38 | Emergency (ER) | payer OTHER ==
[~2018-12-06] VITALS: Ht 193 cm; Wt 149.7 kg
[2018-12-06] MEDS ORDERED: Ativan1 MG PO (14:20)
== END 2018-12-06 14:30 | disposition home or self-care (01) ==
LOC: ER 13:38
DX: F41.9 Anxiety disorder, unspecified (principal); Z76.0 Encounter for issue of repeat prescription; E11.9 Type 2 diabetes mellitus without complications; F17.200 Nicotine dependence, unspecified, uncomplicated; Z79.899 Other long term (current) drug therapy; Z79.4 Long term (current) use of insulin; Z79.02 Long term (current) use of antithrombotics/antiplatelets
CPT/HCPCS: 93005; 93010; 99283-25